=== PATIENT | male | born 1965 | race Caucasian/White ===

== ENCOUNTER → 2019-02-28 12:03 | Outpatient (CLI) | payer BC, SELFPAY ==
--- NOTE | 2019-02-28 | NM_ITS ---
APPROVED REPORT Exam: Nuclear Stress Test Indication: c.p., tachicardia, htn, fm. hx., fatique Patient Location: Outpatient Stress Tech: Moriah CrowleyDelafield PA Tech:Dariela Mendez MARTIN RT (R)(N)(M) Ht: 6 ft 1 in Wt: 235 lbs HR: 84 bpm BP: 151/77 mmHg BSA: 2.30 m2 BMI: 31.0 History: c.p., tachicardia, htn, fm. hx., fatique Procedure: Patient exercised on Shailesh protocol 9:00 minutes and sec, resting heart rate 84 bpm, resting blood pressure 151/77 mmHg, with exercise maximum heart rate achived was 155 bpm which is Greater than 85 % of the maximum predicted heart rate and blood pressure was 160/82 mmHg. Patient denied any complaint of chest pain. Patient has Good exercise capacity, achieved 10.1 METs of workload on treadmill, the blood pressure response to exercise was Adequate. Electrocardiogram Sinus rhythm, with exercise there is less than 1.[address] segment depression noted from the baseline EKG. The EKG portion of the exercise Myoview is negative for ischemia. Cardiac Stress and Resting SPECT Images: Cardiac Stress and Resting SPECT images were obtained using technetium 99m Myoview 31.2 mCi stress and 9.84 mCi at rest. Gated SPECT with analysis of segmental wall motion and calculation of the ejection fraction also done. Cardiac stress and resting SPECT images show uniform myocardial activity without segmental perfusion abnormality, computer derived ejection fraction is over 65% with no regional wall motion abnormality, right ventricle is normal size and contractility. Conclusion: 1. The EKG portion of the exercise Myoview is negative for ischemia, patient has good exercise capacity achieved 10.1 mets of workload on treadmill, the blood pressure response to exercise was adequate, there was no exercise-induced chest discomfort. 2. No scintigraphic evidence of reversible ischemia seen, computer derived ejection fraction is over 65% with no regional wall motion abnormality, right ventricle is normal size and contractility. 3. Normal exercise Myoview study. Electronically signed by : Cezar Gonzales, 03/01/2019 06:42:23
--- NOTE | 2019-02-28 | CA_ITS ---
APPROVED REPORT Exam: Exercise Treadmill Technologist: diana herring, Ht: 6 ft 1 in Wt: 235 lbs BSA: 2.30 m2 HR: 84 bpm BP: 151/77 mmHg Indications: CP Medical History Medical History: HTN Medications: Lisinopril,,,,, ZYRTEC,,,,, SuLindac,,,,, RanTIDINE,,,,, Allergies: No known drug allergies Cardiac Risk Factors: HTN, FHX of CAD Stress Test Details Test: Shailesh HR Resting HR: 75 bpm Max Heart Rate (APMHR): 168 bpm Max HR Achieved: 158 bpm Target HR (85% APMHR): 142 bpm % of APMHR: 94 Recovery HR: 109 bpm BP Resting BP: 129/82 mmHg Max BP: 170/78 mmHg Recovery BP: 153.0/84.0 mmHg ECG Resting ECG: sinus Clinical Exercise duration: 09:00 min Highest Stage Achieved: Exercise capacity: 10.1 METs Stress ECG Conclusion max hr - 158; %of PM - 94%; max B/P- 170/78 METS - 10.1. denies any chest pain; positive shortness of breath at peak exercise. - resolved in recovery. No ectopy noted. Less than 1.5mm ST depression - Images to follow. Test Summary REST . . . . . . . Standing REST . . . . . . . Sitting REST 02:13 0.0 0.0 75 . 129/ 82 . . Stage 1 01:00 10.0 1.7 112 . . . . Stage 1 02:00 10.0 1.7 121 . . . . Stage 1 03:00 10.0 1.7 128 . 158/ 80 . . Stage 2 01:00 12.0 2.5 135 . . . . Stage 2 02:00 12.0 2.5 145 . . . . Stage 2 03:00 12.0 2.5 148 . 170/ 78 . . Stage 3 . . . . . . . Cardiolite injected Stage 3 01:00 14.0 3.4 151 . . . . Stage 3 02:00 14.0 3.4 155 . 160/ 80 . . Stage 3 03:00 14.0 3.4 157 . 160/ 80 . Stop exercise at 09:00 RECOVERY 01:00 0.0 0.0 136 . . . . RECOVERY 02:00 0.0 0.0 121 . 165/ 85 . . RECOVERY 03:00 0.0 0.0 116 . 165/ 85 . . RECOVERY 04:00 0.0 0.0 111 . 139/ 85 . . RECOVERY 05:00 0.0 0.0 112 . 153/ 84 . . RECOVERY 05:06 0.0 0.0 109 . 153/ 84 . . Electronically signed by : Cezar Gonzales, 03/01/2019 06:37:54
--- NOTE | 2019-02-28 14:06 | HMH.ITSHM ---
Current Home Medications as stated by this patient Saul Valles or shipping services sales representative. []RANITIDINE SULINDAC LISINOPRIL ZYRTEC
== END ==
PROVIDERS: PCP Family Medicine; Visit Provider Family Medicine
DX: R00.0 Tachycardia, unspecified (principal); R07.89 Other chest pain
CPT/HCPCS: 78452; 93017; 93225; 93226; A9502

== ENCOUNTER → 2020-08-24 16:52 | Outpatient (CLI) | payer BC, SELFPAY | PROVIDERS: PCP Family Medicine; Visit Provider Family Medicine | DX: G47.33 Obstructive sleep apnea (adult) (pediatric) (principal); I10 Essential (primary) hypertension; R06.83 Snoring | CPT/HCPCS: G0399 ==

== ENCOUNTER → 2020-09-16 08:56 | Outpatient (POV) | payer BC, SELFPAY | PROVIDERS: Visit Provider Audiologist | DX: Z00.00 Encounter for general adult medical examination without abnormal findings (principal) ==

== ENCOUNTER → 2021-06-10 11:43 | Outpatient (CLI) | payer BC, SELFPAY | PROVIDERS: Visit Provider Nurse Practitioner | DX: U07.1 COVID-19 (principal) | CPT/HCPCS: C9803; U0003; U0005 ==

== ENCOUNTER → 2021-07-10 11:57 | Outpatient (CLI) | payer BC, SELFPAY | PROVIDERS: PCP Family Medicine; Visit Provider Specialist | DX: Z01.812 Encounter for preprocedural laboratory examination (principal); Z11.52 Encounter for screening for COVID-19; G47.33 Obstructive sleep apnea (adult) (pediatric) | CPT/HCPCS: C9803; U0003; U0005 ==

== ENCOUNTER → 2021-07-12 20:18 | Outpatient (CLI) | payer BC, SELFPAY | PROVIDERS: PCP Family Medicine; Visit Provider Specialist | DX: G47.33 Obstructive sleep apnea (adult) (pediatric) (principal) | CPT/HCPCS: 95811 ==

== ENCOUNTER 2023-11-22 13:04 | Emergency (ER) | payer BC, SELFPAY ==
[2023-11-22 13:10] VITALS: BP 130/77; PULSE 75; RESP 18; TEMP 36.6; O2SAT 97; BMI 32.4
[2023-11-22 13:23] LABS: Apearance,Urine Clear (Clear); Color,Urine Dark Yellow (Yellow); Glucose,Urine (UA) 1000 (Negative); Ketones,Urine Negative (Negative); Protein,Urine 1+ (Negative)
[2023-11-22 13:24] LABS: Bilirubin,Urine Negative (Negative); Blood, Urine 3+ (Negative); UTC Leukocyte Esterase,Urine Negative (Negative); UTC Nitrate,Urine Negative (Negative); Urobilinogen,Urine 0.2 EU/dl (0.2)
--- NOTE | 2023-11-22 13:24 | ED_ITS ---
Discharge Plan Disposition Patient Disposition: Home, Self-Care Condition: Good Prescriptions Prescriptions: New metformin 500 mg tablet extended release 24 hr 500 mg PO DAILY Qty: 14 0RF (DME) blood-glucose meter [Accu-Chek Guide Glucose Meter] Misc See Rx Instructions .Route Qty: 1 0RF Rx Instructions: As directed- twice a day (DME) Accu-Chek Guide test strips Strip See Rx Instructions .Route Qty: 50 0RF Rx Instructions: twice a day (DME) lancets [Accu-Chek Fastclix Lancet Drum] Misc See Rx Instructions .Route Qty: 100 0RF Rx Instructions: twice a day cephalexin 500 mg tablet 500 mg PO BID 7 Days Qty: 14 0RF No Action albuterol sulfate 90 mcg/actuation HFA aerosol inhaler See Rx Instructions .ROUTE .COMPLEX PRN (Reason: wheezing ) Rx Instructions: see rx instructions lisinopril 5 mg tablet 5 mg PO DAILY Referrals Follow up/Referrals: Panchito Gonzalez MD [Primary Care Provider] - See instructions Activity Restrictions/Add. Instructions Additional Instructions/Restrictions: Increase fluids, water and not soda or tea. Can drink cranberry juice or cranberry extract. Start antibiotics immediately and make sure you take the full course although you may start to see improvement over the next 48 hours. You can eat yogurt or take probiotics to decrease diarrhea or yeast infection caused by the antibiotic Be sure to follow-up anytime for new or worsening symptoms in 48 hours for wound urine culture results be sure to let you PCP no recent urine for culture so they can request records and ensure that you have appropriate antibiotic if you are not getting better or getting worse. If symptoms worsen or do not improve return or be seen in the ER. Follow-up with primary care this week. follow up with pcp for eval and work up for dm Clinical Impressions Clinical Impression: Acute UTI, Type 2 diabetes mellitus Instructions Patient Instructions: DI for Urinary Tract Infection (UTI), DI for Diabetes Type 2, Type 2 Diabetes Discharge ED Provider: Leti ([facility] [[email or web address]])[facility] HPI General Stated complaint: possible uti Mode of Arrival: Ambulatory Source of Information: Patient Limitations: No Limitations Time Seen by Provider: 11/22/23 13:24 Description of Symptoms (Recalled from Triage Doc. by RN): Pt's symptoms are burning with urination. HEENT Symptoms (Recalled from RN notes): No Resp Symptoms (Recalled from RN notes): No Skin Symptoms (Recalled from RN notes): No MS Symptoms (Recalled from RN notes): No Functional Status (Recalled from RN notes): n/a History of Present Illness Provider Complaint: 57 yr old male presents for burning with urination and urine having strong odor for 2 days Related Data Home Medications Medication Instructions Recorded Confirmed lisinopril 5 mg tablet 5 mg PO DAILY 11/24/20 11/22/23 albuterol sulfate 90 mcg/actuation See Rx Instructions .Route 07/25/21 11/22/23 aerosol inhaler .COMPLEX PRN wheezing Previous Rx's Medication Instructions Recorded blood sugar diagnostic (Accu-Chek #50 ea 11/22/23 Guide test strips) blood-glucose meter (Accu-Chek #1 ea 11/22/23 Guide Glucose Meter) cephalexin 500 mg tablet 500 mg PO BID 7 days #14 tabs 11/22/23 lancets (Accu-Chek Fastclix Lancet #100 ea 11/22/23 Drum) metformin 500 mg tablet,extended 500 mg PO DAILY #14 tabs 11/22/23 release 24 hr Allergies Allergy/AdvReac Type Severity Reaction Status Date / Time No Known Allergies Allergy Verified 11/22/23 13:18 Worker's Comp Is this a Worker's Comp case?: No [facility] Disclaimer: The information contained in this section may have been updated after the patient was seen, as this information can be updated by other users. Surgical History (Reviewed 11/22/23 @ 13:33 by Yair Landeros ([facility] [[email or web address] [employer]) Hx of tonsillectomy Hx of appendectomy Social History (Reviewed 11/22/23 @ 13:33 by Yair Landeros ([facility] [[email or web address] [employer]) Smoking Status: Former smoker alcohol intake: current alcohol intake frequency: holidays/special occasions only substance use type: denies use current occupational status: employed Travel in the last 8 weeks: None household members: family housing: house caffeine: Yes ROS Obtained: Yes All systems reviewed & no additional complaints except as documented Constitutional Constitutional: Reports system reviewed and no additional complaints, except as documented Eyes Eyes: Reports system reviewed and no additional complaints, except as documented ENT Ears, Nose, Mouth, and Throat: Reports system reviewed and no additional complaints, except as documented Cardiovascular Cardiovascular: Reports system reviewed and no additional complaints, except as documented Respiratory Respiratory: Reports system reviewed and no additional complaints, except as documented Genitourinary Male Genitourinary: Reports system reviewed and no additional complaints, except as documented, Reports as per HPI, Reports hematuria and Reports other Musculoskeletal Musculoskeletal: Reports system reviewed and no additional complaints, except as documented Integumentary/Breasts Skin/Breast: Reports system reviewed and no additional complaints, except as documented Neurologic Neurologic: Reports system reviewed and no additional complaints, except as documented Endocrine Endocrine: Reports system reviewed and no additional complaints, except as documented Hematologic/Lymphatic Henatologic/Lymphatic: Reports system reviewed and no additional complaints, ex cept as documented Allergic/Immunologic Allergic/Immunologic: Reports system reviewed and no additional complaints, except as documented Physical Exam General General appearance: alert and in no apparent distress Head Head exam: atraumatic Eye Eye exam: Present normal appearance and PERRL ENT ENT exam: Present normal exam, normal oropharynx, mucous membranes moist and TM's normal bilaterally Respiratory Respiratory exam: Present normal lung sounds bilaterally Cardiovascular Cardiovascular exam: Present regular rate and normal rhythm Neurological Exam Neurological exam: Present alert and oriented X3 Skin Skin exam: Present warm and intact Medical Decision Making Medical Records Medical records reviewed: Yes I reviewed the patient's medical records. Aleksandar Inquiry Pt receiving controlled substance: No Aleksandar was queried for this patient: No Vital Signs: 11/22/23 13:10 Temperature 97.8 F Temperature Source Oral Pulse Rate [Right Radial] 75 Respiratory Rate 18 Blood Pressure [Right Arm] 130/77 Blood Pressure Mean [Right Arm] 94 Blood Pressure Source [Right Arm] Automatic Cuff Blood Pressure Position [Right Arm] Sitting 02 Sat by Pulse Oximetry 97 Oxygen Delivery Method Room Air Lab Data Lab results reviewed: Yes I reviewed the patient's lab results. Orders (Tests/Meds): ORDERS Category Date Time Status Urine Culture Stat Micro 11/22/23 13:12 Received
[2023-11-22 13:31] LABS: POC Glucose,Bedside 181 (70-110)
--- NOTE | 2023-11-22 13:33 | PC.NURSE ---
Sent purple top to lab via tube system.
[2023-11-22 14:37] VITALS: BP 130/77; PULSE 75; RESP 18; TEMP 36.6; O2SAT 97
== END 2023-11-22 14:36 | disposition home or self-care (01) ==
PROVIDERS: Emergency Provider Nurse Practitioner Family; PCP Family Medicine
DX: N39.0 Urinary tract infection, site not specified (principal); E11.9 Type 2 diabetes mellitus without complications; Z79.84 Long term (current) use of oral hypoglycemic drugs
CPT/HCPCS: 81003; 82962; 83036; 87086; 99204; 99212; G0463

== ENCOUNTER 2024-07-22 06:53 | Outpatient (CLI) | payer BC, SELFPAY ==
--- NOTE | 2024-07-22 07:03 | CT_ITS ---
FINAL REPORT CLINICAL HISTORY: SCREENING former smoker, quit 15 years ago. smoked 1 ppd x 20 years hx of cad/stents/ bypass FINDINGS: CTDI vol (mGy): 2.90 DLP: 114.[address] images of the chest were obtained using the low-dose protocol for screening. There is no evidence of mediastinal or hilar mass or adenopathy. No axillary mass or adenopathy is identified. On the lung window images, a 4 mm nodule seen in the right midlung on image 12 of series 2 which may represent granuloma or intrafissural lymph node. There are scattered calcified granulomas. IMPRESSION: 4 mm nodule right midlung which could represent granuloma or intrafissural lymph node. Lung RADS category 1 . Recommend 12 month followup low-dose CT for further evaluation. Reviewed, Interpreted and Dictated by Panchito Shipman MD Transcribed by Christine Shah Authenticated and [facility]
== END 2024-07-22 23:59 | disposition home or self-care (01) ==
LOC: RAD 06:54
PROVIDERS: PCP Family Medicine; Visit Provider Family Medicine
DX: Z87.891 Personal history of nicotine dependence (principal); Z12.2 Encounter for screening for malignant neoplasm of respiratory organs
CPT/HCPCS: 71271